=== PATIENT | male | born 1985 | race Caucasian/White ===

== ENCOUNTER 2023-06-29 19:51 | Emergency (ER) | payer OTHER, SELFPAY ==
[2023-06-29] VITALS (8 sets, daily range): BP systolic 145–166; BP diastolic 89–108; PULSE 67–86; RESP 18–20; TEMP 36.9; O2SAT 96–100; BMI 30.8
[2023-06-29] MEDS: 0.9 % SODIUM CHLORIDE 1000 ml 1,000 ML IV (20:10)
[2023-06-29] MEDS: ONDANSETRON 2 MG/ML inj 4 MG IVP (20:15)
[2023-06-29] MEDS: HYDROmorphone 0.5 mg/0.5 ml inj IVP (20:15)
--- NOTE | 2023-06-29 20:15 | CT_ITS ---
Patient: ZAIRE GOMEZ Facility:?[facility] Patient ID:?[id number] Site Patient ID:?[id number]. Site :?10/09/1994 Study:?CT-Abdomen/Pelvis W/ ISOVUE 370-06/29/2023 9:02:30 PM Ordering Physician:SAURABH Final Report: INDICATION: Mid abdominal pain. TECHNIQUE: CT abdomen and pelvis acquired with 118 mL Isovue 370 contrast. COMPARISON: None. FINDINGS: Lower chest: Mild bilateral dependent atelectasis. No focal consolidation. Liver: No suspicious focal hepatic lesion. Gallbladder and bile ducts: Mild gallbladder wall edema and pericholecystic inflammation. No calcified gallstones are identified, gallbladder itself is not distended. Pancreas: Unremarkable. Spleen: Unremarkable. Splenule is noted. Adrenal glands: Unremarkable. Kidneys: Kidneys enhance symmetrically, without hydronephrosis. Retroperitoneum: No lymphadenopathy. Bowel and mesentery: Bowel is not obstructed. No significant ascites, no pneumoperitoneum. Mild fatty infiltration along the ascending and transverse colonic wall. Normal appendix. Bladder: Unremarkable for degree of distention. Reproductive organs: Unremarkable. Pelvic lymph nodes: No lymphadenopathy. Vessels: Unremarkable. Abdominal wall: No acute abdominal wall abnormality. Bones: Multilevel degenerative changes of the spine. No suspicious/aggressive focal osseous lesion. Unfused apophysis versus sequelae of prior trauma at the left pubic symphysis. IMPRESSION: 1. Mild gallbladder wall edema and pericholecystic inflammation. No calcified gallstones are present, and gallbladder is not distended. Correlate clinically for any signs/symptoms of acute cholecystitis, and consider further evaluation with right upper quadrant ultrasound. 2. Mild fatty infiltration along the ascending and transverse colonic wall, nonspecific, can be seen in setting of chronic inflammation such as with inflammatory bowel disease. Please note that all CT scans at this facility use dose modulation, iterative reconstruction, and/or weight-based dosing when appropriate to reduce radiation dose to as low as reasonably achievable. Dictated by Shanon Carranza MD @ 06/29/2023 9:32:06 PM Signed by:?Shanon Carranza MD @06/29/2023 9:32:06 PM (Electronic Signature)
--- NOTE | 2023-06-29 20:16 | ED_ITS ---
HPI - Abdominal Pain General Chief Complaint: Abdominal Pain Stated Complaint: abdominal pain Time Seen by Provider: 06/29/23 20:11 History of Present Illness HPI narrative: Patient is a 37-year-old gentleman who comes in today with a 5 hour history of mid abdominal pain with radiation to the epigastrium. He has had no fevers no chills no night sweats. He has had refractory nausea and vomiting. Patient's only past medical history significant for GERD. He has had no chest pain ort hopnea no PND. He states the pain is 10/10 and he feels like he is going to pass out. He has had no blood in his bowel movements which have been normal and or vomitus. Patient has had no similar symptoms previously. Related Data Allergies Allergy/AdvReac Type Severity Reaction Status Date / Time No Known Drug Allergies Allergy Verified 06/29/23 20:13 Review of Systems Status of ROS Reports: 10 or more systems reviewed and unremarkable except as noted in History and below [facility] Medical History GERD (gastroesophageal reflux disease) ?K21.9 - Gastro-esophageal reflux disease without esophagitis (ICD-10) Social History Smoking Status: Never smoker Second hand tobacco smoke exposure: No How often do you have a drink containing alcohol: never AUDIT-C Alcohol total score: 0 Non-prescribed substance use: denies use Exam Narrative: Exam Narrative: EXAM GENERAL: Patient appears acutely distressed and writhing. EYES: No scleral icterus. LYMPH: No supraclavicular or cervical lymphadenopathy. SKIN: Visible skin seen during exam normal or with benign process only. EXT: No dependent lower extremity pedal edema. HEART: Regular rate and rhythm with no murmurs, rubs, or gallops. LUNGS: Clear to auscultation bilaterally with no crackles or wheezes. ABD: Rigid with hypoactive bowel sounds throughout. PSYCH: Good eye contact, speech is not pressured. Const: Vital Signs, click to edit/add: Vital Signs - 24 hr 06/29/23 20:07 06/29/23 20:25 06/29/23 20:32 Temperature 98.5 F Pulse Rate 70 67 Pulse Rate [Right Pulse Oximeter] 83 Respiratory Rate 18 20 20 Blood Pressure 148/108 H 155/99 H Blood Pressure [Ri ght Upper Arm] 166/93 H Pulse Oximetry 99 100 96 Oxygen Delivery Me thod Room Air 06/29/23 20:34 06/29/23 21:04 Temperature Pulse Rate 83 Pulse Rate [Right Pulse Oximeter] Respiratory Rate 20 Blood Pressure 147/90 H Blood Pressure [Ri ght Upper Arm] Pulse Oximetry 97 97 Oxygen Delivery Me thod Course Course ED Course: Patient seen. 1 L normal saline given. 4 mg of Zofran 0.5 mg of IV Dilaudid. I did do CT of the abdomen pelvis amylase lipase CBC CMP lactate. Reevaluation(s) Reevaluation #1: Patient has noted have leukocytosis as well as findings consistent with acute cholecystitis on his CT. He is now comfortable and we are proceeding with ultrasound of the right upper quadrant. Vital Signs Vital signs: Initial Vital Signs Temperature 98.5 F 06/29/23 20:07 Temperature Source Temporal Artery Scan 06/29/23 20:07 Pulse Rate 83 06/29/23 20:07 Pulse Rhythm Regular 06/29/23 20:07 Pulse Strength 3+ Normal 06/29/23 20:07 Respiratory Rate 18 06/29/23 20:07 Blood Pressure 166/93 H 06/29/23 20:07 Blood Pressure Mean 117 H 06/29/23 20:07 Blood Pressure Position Sitting 06/29/23 20:07 Pulse Oximetry 99 06/29/23 20:07 Oxygen Delivery Method Room Air 06/29/23 20:07 Vital Signs Temperature 98.5 F 06/29/23 20:07 Pulse Rate 83 06/29/23 20:07 Respiratory Rate 18 06/29/23 20:07 Blood Pressure 166/93 H 06/29/23 20:07 Pulse Oximetry 99 06/29/23 20:07 Oxygen Delivery Method Room Air 06/29/23 20:07 Temperature 98.5 F 06/29/23 20:07 Pulse Rate 83 06/29/23 21:04 Respiratory Rate 20 06/29/23 21:04 Blood Pressure 147/90 H 06/29/23 21:04 Pulse Oximetry 97 06/29/23 21:04 Oxygen Delivery Method Room Air 06/29/23 20:07 Medications Administered Medications: Discontinued Medications Generic Name Dose Route Start Last Admin Trade Name Freq PRN Reason Stop Dose Admin Hydromorphone HCl 0.5 mg 06/29/23 20:14 06/29/23 20:15 Hydromorphone 0.5 Mg/0.5 Ml Inj IVP 06/29/23 20:15 0.5 mg ONCE ONE Administration Sodium Chloride 1,000 mls @ 1,000 mls/hr 06/29/23 20:14 06/29/23 21:26 0.9 % Sodium Chloride 1000 Ml IV 06/29/23 21:13 Infused .Q1H DISHA Infusion Ondansetron HCl 4 mg 06/29/23 20:14 06/29/23 20:15 Ondansetron 2 Mg/Ml Inj IVP 06/29/23 20:15 4 mg ONCE ONE Administration MDM - Abdominal Pain MDM Narrative Medical decision making narrative: Patient is a 37-year-old gentleman comes in with extreme right upper quadrant epigastric pain. Evaluation shows elevated white blood cell count. He had resolution of his symptoms with 0.5 mg of Dilaudid 4 mg of Zofran 1 L of normal saline. Of in CT showed evidence of questionable acalculous cholecystitis. This is confirmed on ultrasound. Patient is now asymptomatic. I did speak with General surgery in the did recommend watchful waiting and outpatient follow-up. I did offer him hospital admission for repeat exam he declines. Patient will contact me directly if there are any further difficulties. Lab Data Labs: Lab Results 06/29/23 06/29/23 06/29/23 Range/Units 20:12 20:14 20:15 WBC 12.38 H (4.50-11.00) K/uL RBC 6.12 H (4.30-5.90) m/uL Hgb 17.9 H (13.5-17.5) gm/dL Hct 50.8 (37.0-53.0) % MCV 83 (80-100) fL MCH 29 (26-34) pg MCHC 35 (32-36) gm/dL RDW Coeff of Lauri 11.4 L (11.5-15.5) % Plt Count 313 (140-440) K/uL Neut % (Auto) 86.1 H (42.0-72.0) % Lymph % (Auto) 9.0 L (20-44) % Whitman % (Auto) 3.6 (0.0-11.0) % Eos % (Auto) 1.0 (0.0-7.0) % Baso % (Auto) 0.1 (0.0-3.0) % Neut # (Auto) 10.70 H (1.7-7.0) K/uL Lymph # (Auto) 1.10 (0.90-2.90) K/uL Whitman # (Auto) 0.40 (0.00-0.90) K/UL Eos # (Auto) 0.10 (0.00-0.50) K/uL Baso # (Auto) 0.00 (0.00-0.30) K/uL Abs Immat Gran (auto) 0.00 (0.00-0.30) K/uL Imm/Tot Granulo (auto) 0.2 % D-Dimer Quant (PE/DVT) 0.79 H (0.00-0.50) ug/ml Sodium 139 (135-149) mmol/L Potassium 4.0 (3.6-5.1) mmol/L Chloride 103 (96-114) mmol/L Carbon Dioxide 23 (20-32) mmol/L Anion Gap 13 (7-15) mEq/L BUN 22 (5-24) mg/dL Creatinine 1.1 (0.5-1.5) mg/dL Estimated Creat Clear 108.98 Estimated GFR 90 ml/min Glucose 132 H (60-115) mg/dL Lactate 1.8 (0.5-1.9) mmol/L Calcium 10.3 (8.4-10.6) mg/dL Total Bilirubin 1.0 (0.1-1.5) mg/dL AST 34 (12-35) U/L ALT 39 (4-50) U/L Alkaline Phosphatase 93 (40-150) U/L Troponin I < 0.01 L (0.01-0.04) ng/mL Total Protein 9.1 H (6.0-8.3) g/dL Albumin 5.1 H (3.3-5.0) g/dL Amylase 98 H (18-89) U/L POC Troponin I 0.00 L (0.01-0.04) ng/ml Discharge Plan Discharge Clinical Impression: Acute cholecystitis Patient Disposition: Home, Self-Care Condition: Stable Instructions: Cholecystitis (ED) Additional Instructions: Low-fat diet Pain meds as discussed Follow-up with Dr. Nicolle Candelaria general surgery Follow-up Dr. Poe as needed. Activity Level: No Restrictions Discharge Diet: Regular Follow Up/Referrals: Provider,Not a Local [Primary Care Provider] - Stand Alone Forms: Verified Identity Passth Info Instructions
[2023-06-29 20:21] LABS: Lactate* 1.8 mmol/L (0.5-1.9)
[2023-06-29 20:25] LABS: Basophils Percent Auto 0.1 % (0.0-3.0); Hematocrit 50.8 % (37.0-53.0); Hemoglobin* 17.9 gm/dL (13.5-17.5); Immature Granulocytes Pct Auto 0.2 %; Mean Corpuscular HGB Conc 35 gm/dL (32-36); Mean Corpuscular Hemoglobin 29 pg (26-34); Mean Corpuscular Volume 83 fL (80-100); Monocytes Percent Auto 3.6 % (0.0-11.0); Neutrophils Percent Auto 86.1 % (42.0-72.0); Platelet Count* 313 K/uL (140-440); RDW Coefficient of Variation % 11.4 % (11.5-15.5); Red Blood Count 6.12 m/uL (4.30-5.90); White Blood Count* 12.38 K/uL (4.50-11.00)
[2023-06-29 20:28] LABS: Slide Review Reflex No
[2023-06-29 20:36] LABS: Chloride* 103 mmol/L (96-114)
[2023-06-29 20:37] LABS: Albumin* 5.1 g/dL (3.3-5.0); Sodium* 139 mmol/L (135-149)
[2023-06-29 20:40] LABS: Alanine Aminotransferase* 39 U/L (4-50); Alkaline Phosphatase* 93 U/L (40-150); Amylase* 98 U/L (18-89); Anion Gap 13 mEq/L (7-15); Aspartate Amino Transferase* 34 U/L (12-35); Blood Urea Nitrogen* 22 mg/dL (5-24); Calcium* 10.3 mg/dL (8.4-10.6); Carbon Dioxide* 23 mmol/L (20-32); Creatinine* 1.1 mg/dL (0.5-1.5); Est. Creatinine Clearance* 108.98; Estimated Glomerular Filt Rate 90 ml/min; Glucose* 132 mg/dL (60-115); Total Protein* 9.1 g/dL (6.0-8.3)
[2023-06-29 20:42] LABS: D Dimer Quantitative* 0.79 ug/ml (0.00-0.50)
[2023-06-29 20:54] LABS: Troponin I* < 0.01 ng/mL (0.01-0.04)
--- NOTE | 2023-06-29 21:39 | US_ITS ---
Patient: ZAIRE GOMEZ Facility:?[facility] Patient ID:?[id number] Site Patient ID:?[id number] Site :?1985 Study:?US-Abdomen RUQ-06/29/2023 10:57:42 PM Ordering Physician:?ISRAEL FELIX M.D. Final Report: INDICATION: Right upper quadrant abdomen pain. TECHNIQUE: Ultrasound abdomen limited. Sonographic images of the right upper quadrant were obtained using mcgill-scale and color Doppler images. COMPARISON: CT abdomen and pelvis June 29, 2023. FINDINGS: Liver: Fatty infiltration. Borderline enlarged. No suspicious masses. No intrahepatic biliary dilatation. Gallbladder: No stones or sludge. Wall is thickened measuring 8 mm with pericholecystic fluid. Common bile duct: 5 mm. No ductal stone visualized. Pancreas: Unremarkable. Right kidney: Normal in size. Normal echotexture and cortex. No suspicious masses, stones, or hydronephrosis. Vasculature: Proximal abdominal aorta and IVC are unremarkable. IMPRESSION: No gallstone visualized. However, there is gallbladder wall thickening and pericholecystic fluid suggesting the possibility of acalculous cholecystitis. Dictated by Timothy Fox MD @ 06/29/2023 11:19:20 PM Signed by:?Timothy Fox MD @06/29/2023 11:19:20 PM (Electronic Signature)
== END 2023-06-29 23:15 | disposition home or self-care (01) ==
PROVIDERS: Emergency Provider Internal Medicine
DX: K81.0 Acute cholecystitis (principal)
CPT/HCPCS: 36415; 74177; 76705; 80053; 82150; 83605; 84484; 85025; 85379; 93005; 94761; 96374; 96375; 99283; 99284; J1170; J2405; J7030; Q9967

== ENCOUNTER 2023-07-26 11:38 | Outpatient (CLI) | payer OTHER, SELFPAY ==
--- NOTE | 2023-07-26 12:00 | NM_ITS ---
Patient: ZAIRE GOMEZ Facility:?[facility] Patient ID:?[id number] Site Patient ID:?[id number] Site :?1985 Study:?NM-Gallbladder Procedure HIDA w/ GBEF-07/26/2023 2:09:14 PM Ordering Physician:?KELSEY NOLAN Final Report: Indication: Right upper quadrant pain Technique: Patient was injected with 5.46 mCi [id number] in the right antecubital vein and underwent a routine hepatobiliary scan over 60 minutes. Patient was subsequently injected with 2.23 mcg Kinevac IV and additional imaging was performed with gallbladder ejection fraction calculated. Comparison: Ultrasound performed 06/29/2023 Findings: There is prompt uptake by hepatocytes. The biliary tree, gallbladder, and bowel are visualized. No visualized episodes of enterogastric reflux. Gallbladder ejection fraction calculated at 24% (normal: <=35%). Impression: 1. Normal hepatocellular clearance of radiotracer. 2. No cystic or common duct obstruction. 3. No visualized episodes of enterogastric reflux. 4. Gallbladder ejection fraction calculated at 24% (normal: <=35%). Dictated by Laron Young MD @ 07/26/2023 4:35:54 PM Signed by:?Laron Young MD @07/26/2023 4:35:54 PM (Electronic Signature)
== END 2023-07-26 11:39 | disposition home or self-care (01) ==
LOC: NM 11:39
PROVIDERS: Visit Provider Surgery
DX: R10.11 Right upper quadrant pain (principal); K82.8 Other specified diseases of gallbladder
CPT/HCPCS: 78227; A9537; J2805